=== PATIENT | female | born 1935 | race African-American/Black ===

== ENCOUNTER 2019-08-10 12:05 | Inpatient (IN) | payer OTHER ==
[~2019-08-10] VITALS: Ht 154.9 cm; Wt 54.4 kg
--- NOTE | ~2019-08-10 | EKG ---
[facility] [place] [address] ELECTROCARDIOGRAM REPORT Name: CANDY ANGULO Room #: PRE M.R.#: [id number] Admission: Attend Phys: Discharge: Date of : 35 Report #: [id number] THIS REPORT FOR: //name// [facility] ED Test Date: 2019-08-10 Test Time: 12:09:23 Pat Name: CANDY TURK Department: Room: Gender: F [employer] Supervisor: richy : 1935 Requested By: Reji Wells Order Number: [id number] MD: Measurements Intervals [place] Rate: 68 P: 60 TX: 190 QRS: 35 QRSD: 82 T: 51 QT: 374 QTc: 398 Interpretive Statements Sinus rhythm Low voltage, precordial leads Abnormal R-wave progression, early transition No previous ECG available for comparison [email or web address] By: 1209 120 Epiphany EpiphMD karthikeyan /EPI
[2019-08-10 12:09] VITALS: BP 120/65
[2019-08-10 14:08] LABS: ABSOLUTE NEUTROPHILS 1.9 thou/uL (1.4-8.2); BASOPHILS 2.5 % (0.0-2.0); EOSINOPHILS 1.9 % (0.0-3.0); HEMATOCRIT 40.5 % (37.0-47.0); HEMOGLOBIN 13.1 gm/dL (12.0-15.0); LYMPHOCYTES 43.8 % (24.0-44.0); MCH 32.3 pg (26.0-34.0); MCHC 32.3 g/dL (28.0-37.0); MCV 100.1 fL (80.0-100.0); MONOCYTES 9.3 % (1.0-8.0); PLATELET COUNT 234 thou/uL (150-400); POLYS 42.5 % (36.0-66.0); RBC 4.04 mil/uL (4.20-5.00); RDW 13.4 % (10.5-14.5); WBC 4.4 thou/uL (4.0-11.0)
[2019-08-10 14:24] LABS: ANION GAP 8 mmol/L (7-16); BUN 13 mg/dL (7-18); CALCIUM 9.5 mg/dL (8.5-10.1); CHLORIDE 102 mmol/L (98-107); CO2 27 mmol/L (21-32); CREATININE 0.8 mg/dL (0.6-1.0); GLUCOSE 73 mg/dL (74-106); SODIUM 137 mmol/L (136-145)
[2019-08-10 14:29] LABS: ALBUMIN 3.9 g/dL (3.4-5.0); SGOT 26 U/L (15-37); SGPT 17 U/L (30-65); TOTAL BILIRUBIN 0.6 mg/dL (<0.1-1.0); TROPONIN-I <0.06 ng/mL (<0.06)
[2019-08-10 14:56] LABS: URINE BILIRUBIN NEGATIVE (Negative); URINE BLOOD 1+ (Negative); URINE CLARITY CLEAR; URINE COLOR YELLOW; URINE GLUCOSE-RANDOM* NEGATIVE (Negative); URINE KETONES NEGATIVE (Negative); URINE LEUKOCYTES-REFLEX 1+ (Negative); URINE NITRITE-REFLEX NEGATIVE (Negative); URINE PROTEIN (DIPSTICK) NEGATIVE (Negative); URINE SPECIFIC GRAVITY 1.025 (1.005-1.035); URINE UROBILINOGEN 0.2 E.U./dl (0.2-1.0)
--- NOTE | 2019-08-10 14:56 | NUR ---
CALLED LAB X2 TO PROCESS URINE WHICH WAS SENT AT 1300. LAB IS NOW PROCESSING
[2019-08-10 15:08] LABS: CASTS None Seen /LPF (None Seen); CRYSTALS None Seen /LPF (None Seen); SQUAMOUS 4-10 Moderate /LPF (0-3)
[2019-08-10 15:09] LABS: URINE RBC 3-10 Few /HPF (0-2)
[2019-08-10 16:07] VITALS: BP 119/67
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
[2019-08-10 17:02] VITALS: BP 117/67
[2019-08-10 19:40] LABS: FOLIC ACID 21.8 ng/mL (8.6-58.9)
[2019-08-10 19:46] VITALS: BP 117/62
--- NOTE | 2019-08-10 19:53 | NUR ---
Patient arrived at approximatly 1715 from the emergency room. Patient was transported to unit via wheel chair. Patient arrived with two family members. Patients vital signs were stable. Patient ambulates without assistance. Patient denies pain. Consents were signed by patient. Patient is forgetful but in good spirits.
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
[2019-08-11 07:55] VITALS: BP 129/66
--- NOTE | 2019-08-11 08:15 | NUR ---
PT UP THIS AM EATING BREAKFAST. PT SOCIAL WITH OTHER CLIENTS. PT HAS NO SCHEDUALED MEDS TO GIVE THIS AM.
[2019-08-11 08:40] VITALS: BP 129/66
--- NOTE | 2019-08-11 14:02 | NUR ---
ADM TYLENOL 325MG 2 TABS PO FOR HEADACHE PT STATED THAT WHEN SHE PUTS HER HAND ON HER HEAD THEN IT FEELS BETTER.
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
[2019-08-11 19:30] VITALS: BP 110/40
[2019-08-11 23:06] LABS: SYPHILIS AB Non Reactive (Non Reactive)
--- NOTE | 2019-08-12 01:33 | NUR ---
Care assumed of patient at 1915: Patient resting in bed at start of shift. Easily aroused. Calm, pleasant and cooperative. Presents with flat affect, empty train of thought. Pleasantly confused. Alert and oriented to person only. Denies pain or discomfort. Denies having any headache this evening. Denies SI/HI/AH/VH. No s/s of delusional or paranoia behaviors. Patient not visualized speaking to unseen others. Patient did report that she was tired and was ready to sleep for the night. Patient started on abx tx for the diagnosis of UTI. Patient took medication whole without difficulty. Education provided on use of medication. No s/s of adverse effects noted at this time. Continent of bladder. Denies any pain or burning upon urination. Declined HS snack. Encouraged to drink full cup of water with HS medication but patient declined. Patient has been able to rest quietly throughout the shift thus far.
[2019-08-12 08:00] VITALS: BP 114/72
[2019-08-12 08:30] VITALS: BP 114/72
--- NOTE | 2019-08-12 08:33 | NUR ---
PT UP THIS AM WITH A SMILE ON HER FACE. PT STATED SOME PAIN TO HEAD OF 5 ON 1-10 SCALE. PT HAS NEVER ASKED FOR PAIN MEDICATION. PT TOOK MEDS WITHOUT ANY ISSUES. ADM TYLENOL 325MG 2 TABS FOR HEADACHE. GOT PT AN ICE PACK TO PUT ON FOR COMFORT.
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
--- NOTE | 2019-08-12 13:45 | NUR ---
Chidi sent the referral to [facility] but they do not take medicaid pending. Will send to more communities today.
--- NOTE | 2019-08-12 15:21 | NUR ---
STEFFEN sent referral to [facility] if an effort to seek placement. STEFFEN called and left a VM with Imelda.
--- NOTE | 2019-08-12 17:31 | NUR ---
PT DENIES ANY HALLUCINATION AT THIS TIME. PT SMILES WITH STAFF. PT NOT COMPLAINING OF ANY PAIN AT THIS TIME.
[2019-08-12 19:50] VITALS: BP 110/65
[2019-08-12 21:00] VITALS: BP 110/65
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
[2019-08-13 09:40] VITALS: BP 106/67
--- NOTE | 2019-08-13 18:14 | NUR ---
Assumed patient care at 0715. Vital signs have been stable. Patient has been calm and cooperative but, has been fixated on "calling her sister" throughout most of this shift. Patient ambulates without difficulty. She made no suicidal and/or homicidal threats, is pleasantly confused. Meal and fluid intake is adequate. Compliant with medications. Family came to visit this afternoon. Will continue to monitor.
--- NOTE | 2019-08-14 07:53 | NUR ---
PROGRESS PT UP AD FLORES AMBULATING FREQUENTLY. STILL TALKING ABOUT CALLING HER SISTERS. UP AT 4 AM GOT DRESSED AND BATHED INDEPENDENTLY. TOLD ROOM MATE SHE COULDN'T SHOWER IN ROOM BECAUSE SHE WAS GOING TO USE THE BATHROOM FIRST. VSS TOLERATING DIET ADEQUATE PO INTAKE, CONTINENT OF BOWEL AND BLADDER UP TO BR INDEPENDENTLY.
[2019-08-14 09:24] VITALS: BP 110/61
--- NOTE | 2019-08-14 15:34 | NUR ---
CANDY IS A&OX3, VSS, DENIES SI/HI. PATIENT IS A BIT PARONOID AND STATES SHE WOULD RATHER HAVE HER ROOM TO HERSELF. PATIENT STATES SHE IS READY TO GO HOME, BUT HOPEFUL FOR THE DOCTOR TO FIGURE OUT WHATS WRONG WITH HER. PATIENT HAS BEEN IN ROOM AND DAYROOM THROUGHOUT DAY. PATIENT TOLERATING DIET. PATIENT STATES SHE IRRITATED BY SOME OF THE PATIENT YELLING. PATIENT BEHAVIOR IS COOPERATIVE AND FACIAL EXPRESSION IS VARIABLE. WILL CONTINUE TO MONITOR.
[2019-08-14 20:00] VITALS: BP 122/75
--- NOTE | 2019-08-15 07:22 | NUR ---
PROGRESS PT ANXIOUS AND PACING AT START OF SHIFT. HAD WORDS WITH HER ROOM MATE OVER TOUCHING OTHER PT'S CLOTHES. SLEPT FOR QUITE A BIT LAST NIGHT WOKE UP THIS AM AND HAD A TALK WITH HER ROOM MATE AND THEY BOTH APOLOGIZED TO EACH OTHER AND CLEANED THEIR ROOM UP TOGETHER. CONTIUE TO MONITOR.
[2019-08-15 07:48] VITALS: BP 133/72
[2019-08-15 09:20] VITALS: BP 99/48
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
[2019-08-15 12:14] LABS: ABSOLUTE NEUTROPHILS 1.5 thou/uL (1.4-8.2); BASOPHILS 1.3 % (0.0-2.0); EOSINOPHILS 1.8 % (0.0-3.0); HEMATOCRIT 41.3 % (37.0-47.0); HEMOGLOBIN 13.5 gm/dL (12.0-15.0); LYMPHOCYTES 49.2 % (24.0-44.0); MCH 32.6 pg (26.0-34.0); MCHC 32.7 g/dL (28.0-37.0); MCV 99.6 fL (80.0-100.0); MONOCYTES 11.9 % (1.0-8.0); PLATELET COUNT 230 thou/uL (150-400); POLYS 35.8 % (36.0-66.0); RBC 4.15 mil/uL (4.20-5.00); RDW 12.9 % (10.5-14.5); WBC 4.2 thou/uL (4.0-11.0)
[2019-08-15 12:22] LABS: CALCIUM 9.2 mg/dL (8.5-10.1); CREATININE 0.8 mg/dL (0.6-1.0); POTASSIUM 3.8 mmol/L (3.5-5.1)
--- NOTE | 2019-08-15 15:37 | NUR ---
Corin Gale asked that STEFFEN contact her after 1500 at [phone]. STEFFEN contacted Corin Gale at number provided. No answer. STEFFEN lft msg. SW team will continue to follow pt during her stay on this unit.
[2019-08-15 20:34] VITALS: BP 131/66
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
--- NOTE | 2019-08-16 10:02 | NUR ---
STEFFEN recieved a VM that pt was accepted at [facility]. STEFFEN called and let Imelda know that [facility] had declined as they do not take Med Pending. Steffen left a VM for Imelda
--- NOTE | 2019-08-16 15:57 | NUR ---
Up ambulating t/o unit without s/o distress. Orientated to self only. Confused speech, very focused on roomate and missing clothes. Denies SI/HI, pain. Breath sounds clear t/o. Reg HR auscultated. Color pink with brisk capillary refill and palpable peripheral pulses, +1 nonpitting edema in ankles. Voiding independently, states she just went when asked for UA. Active bowel sounds over soft, rounded abdomen. Regular, steady gait. Calm and compliant with meds. Participating in groups. No s/o distress. Spoke with Dr. Muñoz r/t unable to obtain clean catch UA, order cancelled.
[2019-08-16 16:30] VITALS: BP 116/68
[2019-08-16 19:37] VITALS: BP 122/70
--- NOTE | 2019-08-16 23:57 | NUR ---
Care assumed of patient at 1915: Patient ambulating about dayroom at start of shift. Patient alert and oriented to person only. Confused and forgetful. Calm, pleasant and cooperative. Patient has had difficulty focusing on one activity and needs simple one step directions to complete task. Patient smiling, appears happy. Patient enjoys helping others and needs reminders on respecting boundaries. Compliant once re-directed. Denies pain or discomfort. Denies SI/HI/AH/VH. No aggression, agitation, delusional or paranoia behaviors observed. Patient remains on PO abx tx for the diagnosis of UTI. No s/s of adverse effects noted at this time. Patient assisted to bed and needed re-direction x2 that it is time to sleep. Patient was then able to lay down and has been resting quietly.
[2019-08-17 08:04] VITALS: BP 134/76
--- NOTE | 2019-08-17 08:34 | NUR ---
Steffen completed a chart review. Sw had left a VM with pt's dght asking for permission for pt to d/c to [facility], and sent a referral to [facility]. STEFFEN also called Tamanna of [facility] requesting that they consider this referral too. Left a VM.
[2019-08-17 09:01] VITALS: BP 134/76
--- NOTE | 2019-08-17 09:26 | NUR ---
Chidi spoke with Imelda and she she understands that placement n=must happen by Thursday and has been provided the phone numbers and addresses for placement.
--- NOTE | 2019-08-17 14:16 | NUR ---
Chidi called [facility] and left a 3rd VM asking for a d/c tomorrow. Hoepfully the medicaid application will be submitted today or tomorrow on this pt's behalf.
--- NOTE | 2019-08-17 15:05 | NUR ---
PT ALERT AND ORIENTED TIMES THREE. PT DENIES SI/HI/AH/VH. PT UP WALKING AROUND THE UNIT. PT DENIES PAIN. PT TOLERATES MEDS AND MEALS. WILL CONTINUE TO MONITOR.
--- NOTE | 2019-08-17 15:31 | NUR ---
SW received a VM that [facility] is going to try SNF first to maximize her benefit. They are willing to accpet her tomorrow.
[2019-08-17 19:53] VITALS: BP 116/68
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
[2019-08-18 09:18] VITALS: BP 103/60
[2019-08-18] MEDS ORDERED: COLACE 100 MG100 MG PO (13:36)
--- NOTE | 2019-08-18 13:39 | NUR ---
0700 Sleeping soundly without s/o distress. Awakens easily. Alert, orientated to person only. Confused speech. Denies SI/HI/pain. Ambulates without difficulty. Breath sounds clear t/o, bilaterally equal. Reg HR auscultated. Color pink with brisk capillary refill and palpable peripheral pulses. Incontinent of yellow urine. Active bowel sounds over soft, flat abdomen. Plan on discharge today per note, no specified time. 1100 Up ambulating t/o unit without s/o distress. Participating in groups. Liliana Romero states they need to finalize discharge plans but are still hopeful for transfer late afternoon. 1330 Participating in groups without s/o distress. Ate 100% of lunch and supplement.
--- NOTE | 2019-08-18 13:43 | NUR ---
STEFFEN spoke with Augusta at [facility] and this pt will be rehab to LTC and will pecan picker this pt today at 3;30pm. Steffen also called Imelda to cofnirm this d/c and left a VM. Steffen also spoke with pt's sister while she visited and gave her the address and phone number for [facility]. Pt also filed her medicaid georgette with the help of Dianwoba this AM. Steffen asked Augusta at [facility] to call and speak with Corin trujillo, but she was forced to leave a VM too. [facility] [address] [address] tel [phone] STEFFEN sent d/c orders and summary, made packet and left it on the chart with the confimration of the d/c fax.
--- NOTE | 2019-08-21 18:09 | D ---
[facility] [place] [address] DISCHARGE SUMMARY Name: CANDY ANGULO Room #: 518A-A [facility] [place] M.R.#: [id number] Admission: 08/10/19 Attend Phys: Sanya Muñoz DO Discharge: 08/18/19 Date of : 35 Report #: [id number] THIS REPORT FOR: cc: FAM - Family physician unknown FAM - Family physician unknown Sanya Muñoz DO ~ THIS REPORT FOR: //name// CC: Sanya Muñoz [facility] unknown DATE OF SERVICE: 08/18/2019 ATTENDING PHYSICIAN: Sanya Muñoz DO LODGING MANAGER: Porfirio Jj MD DISCHARGE DIAGNOSES: Major neurocognitive disorder, likely due to Alzheimer's disease with behavioral disturbance, improved. Medical comorbidities include UTI, completed a course of Keflex. Other medical comorbidities were headaches, nonmigrainous in nature. DISCHARGE PLAN: The patient is discharged to [facility] for memory care. Psychiatric and medical care to be performed by receiving facility. Her medications this admission were pretty simple, Colace 100 mg p.o. b.i.d. was only her scheduled medication, hold if diarrhea. The patient's degree of dementia puts her in a questionable range for benefit of cognitive enhancers and I would like to defer that to her nursing facility. The patient ambulates without assistance and she is on a regular diet. REASON FOR ADMISSION: Back on 08/10/2019 was as follows: The patient was brought to the ER complaining of stabbing chest pain, AK was ruled out. Daughter reported that the patient has been increasingly remained confused, forgetful, concerns of dementia, occasionally hallucinating, questioning why photographs do not talk back to her, so she was referred for voluntary Geriatric Psychiatry admission, which she accepted. HOSPITAL COURSE: The patient was admitted to the Geriatric Psychiatry Unit. The patient was generally pleasant, somewhat disorganized. Screening testing showed her as being significantly cognitively impaired. [facility], which found a number of deficits including does not seem to focus on test, but most likely not be able to respond appropriately in the emergency, has severe difficulty understanding verbal and written instructions, so certainly EMILIA findings were directing us [facility] [address] [place] [address] DISCHARGE SUMMARY Name: CANDY ANGULO Room #: 518A-A [facility].#: [id number] Admission: 08/10/19 Attend Phys: Sanya Muñoz DO Discharge: 08/18/19 Date of : 35 Report #: [id number] towards placement. Her urine culture actually came back negative, but Dr. Jj elected to treat her with a course of Keflex, which was completed without incident. LABORATORY DATA: Significant laboratories from this admission, CBC last one on 08/15/2019 was grossly normal. Chemistries last done on 08/15/2019, BMP was normal including sodium of 139. Initial urinalysis had 1+ blood, some leukocyte esterase, glucosuria, and mild bacteria, but culture negative. Syphilis serology was negative. The family had requested neuro imaging, atrophy was present, otherwise, none acute. She had a chest x-ray done in the ER, which was negative. PHYSICAL EXAMINATION: VITAL SIGNS: On the day of discharge are as follows: Temperature 37.1, pulse 77, respirations 16, BP 103/60, O2 sat 98%. MUSCULOSKELETAL: Normal gait and station. MENTAL STATUS EXAMINATION: This is a well-developed, fairly nourished black female, appearing stated age. Attention limited. Concentration limited. Speech is normal rate. Thought process linear, limited, with some tangentiality to bizarre themes at times. No psychomotor agitation or psychomotor retardation. Denied SI or HI. Some helplessness, some hopelessness. Denied auditory, visual, or tactile hallucinations. Memory known to be impaired. Insight limited. Judgment impaired. Fund of knowledge below average. PROGNOSIS: For this patient is guarded to poor given her age of 83 and progressive neurodegenerative disease. <ELECTRONICALLY SIGNED> By: Sanya Muñoz DO 08/21/19 [id number] Sanya Muñoz DO /nt
== END 2019-08-18 15:54 | DRG 57 ==
LOC: ER 12:05 → SBH 16:00 → EROBS 16:00 → SBH 17:22
PROVIDERS: Emergency Medicine; ADMIT Psychiatry & Neurology Psychiatry
DX: G30.9 Alzheimer's disease, unspecified (principal); F02.81 Dementia in other diseases classified elsewhere, unspecified severity, with behavioral disturbance; N39.0 Urinary tract infection, site not specified; F29 Unspecified psychosis not due to a substance or known physiological condition; F01.50 Vascular dementia, unspecified severity, without behavioral disturbance, psychotic disturbance, mood disturbance, and anxiety; Z79.899 Other long term (current) drug therapy
CPT/HCPCS: 10880